=== PATIENT | male | born 1945 | race Caucasian/White ===

== ENCOUNTER 2016-11-22 02:09 | Emergency (ER) | payer MEDICARE, OTHER ==
[~2016-11-22] VITALS: Ht 175.3 cm; Wt 61.2 kg
--- NOTE | 2016-11-22 02:56 | NUR ---
Patient discharged to home in stable conditon. Written and verbal after care instructions given. Patient verbalizes understanding of instructions.
== END 2016-11-22 03:09 | disposition home or self-care (01) ==
LOC: ER 02:19
DX: L23.7 Allergic contact dermatitis due to plants, except food (principal); Z85.828 Personal history of other malignant neoplasm of skin; Z90.49 Acquired absence of other specified parts of digestive tract
CPT/HCPCS: A4663

== ENCOUNTER 2019-01-11 12:36 | Emergency (ER) | payer OTHER ==
[~2019-01-11] VITALS: Ht 177.8 cm; Wt 65.8 kg
--- NOTE | 2019-01-11 12:58 | NUR ---
PT WAS EVALUATED BY DR ROLLE. PT WAS D/C'd TO HOME. D/C INSTRUCTIONS GIVEN TO THE PT.
[2019-01-11 12:59] VITALS: BP 141/77
== END 2019-01-11 13:05 | disposition home or self-care (01) ==
LOC: ER 12:36
DX: S40.862A Insect bite (nonvenomous) of left upper arm, initial encounter (principal); S40.861A Insect bite (nonvenomous) of right upper arm, initial encounter; L08.9 Local infection of the skin and subcutaneous tissue, unspecified; Z90.49 Acquired absence of other specified parts of digestive tract; W57.XXXA Bitten or stung by nonvenomous insect and other nonvenomous arthropods, initial encounter; Y93.89 Activity, other specified; Y92.89 Other specified places as the place of occurrence of the external cause; Y99.8 Other external cause status
CPT/HCPCS: A4663

== ENCOUNTER 2022-12-22 07:22 | Emergency (ER) | payer MEDICARE, OTHER ==
[~2022-12-22] VITALS: Ht 175.3 cm; Wt 69.9 kg
[2022-12-22] MEDS ORDERED: predniSONE 50 MG TABLET PO ONE (08:00)
[2022-12-22] MEDS ORDERED: predniSONE 50 MG TABLET ONE (08:04)
[2022-12-22] MEDS ORDERED: PRED50TA PO (08:11)
[2022-12-22 08:15] VITALS: BP 136/89; O2SAT 98
== END 2022-12-22 08:15 | disposition home or self-care (01) ==
LOC: ER 07:22
DX: L50.9 Urticaria, unspecified (principal); Z90.49 Acquired absence of other specified parts of digestive tract; Z79.899 Other long term (current) drug therapy
CPT/HCPCS: 99283; J7512; A4663